=== PATIENT | female | born 1940 | race Caucasian/White ===

== ENCOUNTER → 2018-03-07 | Outpatient (CLI) | payer OTHER ==
[2018-03-07] VITALS (9 sets, daily range): BP systolic 135–187; BP diastolic 63–100
[~2018-03-07] MED LIST: ANTIVERT25 MG PO; ASPIR 8181 MG PO; BACTRIM DS TAB1 EACH PO; CALCIUM 500 +1 EAC5 PO; CALCIUM 600 +1 EAC1 PO; COUMADIN 1MG TAB1 M1 PO; ESTRADIOL 1 MG T1 M1 PO; FLOMAX0.4 MG PO; FLONASE 0.05%50 MCG NASAL; HEARTBURN TREAT15 MG PO; HYDROCHLOROTHIA25 M2 PO; LASIX 20 MG TAB20 MG PO; LIPITOR 20 MG T20 M1 PO; LOPRESSOR50 MG PO; MELATONIN3 MG PO; MIRALAX17 GM PO; OMEPRAZOLE 20 M20 M1 PO; PREDNISONE 10 M10 MG PO; PRENATAL PO; PRINIVIL20 MG PO; SINGULAIR 10 MG10 M1 PO; SYMBICORT160 MCG/4. INH; THERAGRAN-M PR1 EAC1 PO; TYLENOL325 MG PO; VENTOLIN HFA 1818 GM INH; VITAMIN A10000 UNI3 PO; VITAMIN D1000 UNI1 PO; ZOFRAN ODT4 MG DISSOLVE; ZYRTEC10 M5 PO
--- NOTE | 2018-03-07 17:03 | TEE ---
[place] [address] TRANSESOPHAGEAL ECHOCARDIOGRAM Name: JANUARY CHARLES Room: [facility]#: [id number] Admission: 03/07/18 Attend Phys: Ishaan Ashby Discharge: Date of : 42 Date of Service: 03/07/18 1702 Report #: [id number] THIS REPORT FOR: //name// ADDENDUM APPROVED REPORT Study performed: 03/07/2018 13:10:12 EXAM: Transesophageal Echocardiogram Patient Location: Out-Patient Status: routine BSA: 1.73 HR: 63 bpm BP: 154/70 mmHg Rhythm: NSR Other Information Study Quality: Good Indications Rule out vegetation on mitral valve Echo Enhancing Agent Indication: Rule out Shunt Agent(s) / Amount(s) Used: Agitated Saline 10 cc Procedure After obtaining informed consent, patient underwent transesophageal echo in the [employer]. Type of Sedation : Conscious Sedation Sedation was administered by Concepcion Moses RN. Sedation start time: 1309 Case end Time: 1320 Sedation was achieved intravenously with: Versed (4) Fentanyl (50) Transesophageal probe was inserted and advanced into esophagus without difficulty by Jung Oconnor MD, FACC. Echo enhancement indication: R/O Septal defect. Echo enhancement agent administered: Agitated Saline The RUTHY was performed without complications. Throughout the procedure, the blood pressure, pulse oximetry, cardiac rhythm, and rate were monitored. The patient tolerated the procedure without adverse effects. Recovery from conscious sedation was uneventful and vital signs were stable[place] [address] TRANSESOPHAGEAL ECHOCARDIOGRAM Name: JANUARY CHARLES Room: [facility]#: [id number] Admission: 03/07/18 Attend Phys: Ishaan Ashby Discharge: Date of : 42 Date of Service: 03/07/18 1702 Report #: [id number] The left ventricle is normal size. There is normal LV segmental wall motion. Mild concentric left ventricular hypertrophy. Left ventricular systolic function is normal. The left ventricular ejection fraction is within the normal range. No left ventricle thrombus noted on this study. LVEF is 60-65%. Right Ventricle The right ventricle is normal size. The right ventricular systolic function is normal. Atria No thrombus is visualized in the left atrium or appendage. Interatrial septum is intact without evidence of ASD or PFO. The right atrium size is normal. Aortic Valve The aortic valve is normal in structure. No aortic regurgitation is present. There is no aortic valvular vegetation. There is no aortic valvular stenosis. Mitral Valve The mitral valve is normal in structure. Mild to moderate mitral regurgitation. Moderate size mitral valve spherical , lesion adherent to the anterior leaflet.Dimension is .9cm in diameter.Its is not obstruction the mitrla valve orifice or causing significant mitral regurgitation No evidence of mitral valve stenosis. Tricuspid Valve The tricuspid valve is normal in structure. Trace tricuspid regurgitation. There is no tricuspid valve vegetations. Pulmonic Valve The pulmonary valve is normal in structure. There is no pulmonic valvular regurgitation. There is no pulmonic valve vegetations. Great Vessels The aortic root is normal in size. Pericardium There is no pericardial effusion. <Conclusion> Moderate size mitral valve spherical , lesion adherent to the anterior leaflet.Dimension is .9cm in diameter.Its is not obstructing the mitral valve orifice or causing significant mitral regurgitation, [place] [address] TRANSESOPHAGEAL ECHOCARDIOGRAM Name: JANUARY CHARLES CALISTA [id number] Admission: 03/07/18 Attend Phys: Ishaan Ashby Discharge: Date of : 42 Date of Service: 03/07/181701 Report #: [id number] differential diagnosis includes endocarditic lesion or myxoma Mild to moderate mitral regurgitation. LVEF is 60-65%. There is normal LV segmental wall motion. Interatrial septum is intact without evidence of ASD or PFO. <ELECTRONICALLY SIGNED> By: Jung Oconnor MD, [facility] 03/07/181701 01 01 Jung Oconnor MD, FACC /INF
--- NOTE | 2018-03-12 08:50 | CON ---
[address] [address] CONSULTATION Name: JANUARY CHARLES Room: [facility]#: [id number] Admission: 03/07/18 Attend Phys: Robin Vera MD Discharge: Date of : 42 Report #: [id number] THIS REPORT FOR: //name// CC: Robin Vera DATE OF SERVICE: 03/07/2018 PRIMARY CARE PHYSICIAN: Robin Vera MD. CHIEF COMPLAINT: Dizziness, abnormal echocardiogram. HISTORY OF PRESENT ILLNESS: The patient is a 77-year-old female with a history of TIAs and chronic dizziness with weakness and fatigue and persistently elevated white blood cell count. She had an outpatient echocardiogram in our office, which demonstrated a question of mitral valve abnormality, possibly a vegetation. She is presenting here for further evaluation with a transesophageal echocardiogram. Historically, the symptoms have been persistent for the last 6-12 months with associated fatigue. She denies prolonged chest pain or pressure. Her echocardiogram did not show any wall motion abnormalities. For her TIA workup, she did have carotid Doppler studies, which were unremarkable for carotid stenosis of significance. She has no documented history of heart disease. She has not had any recent surgeries. She has not had cellulitis. She has no history of anemia of chronic disease, kidney failure but does have obstructive lung disease. PAST MEDICAL HISTORY: Significant for chronic dizziness, hypertension, ataxia, COPD, tobacco abuse. HOME MEDICATIONS: Aspirin 81 mg daily, atorvastatin 20 mg daily, calcium, estradiol, hydrochlorothiazide 25 mg daily, lisinopril 40 mg daily, meclizine 12.5 mg. SOCIAL HISTORY: Tobacco smoker. FAMILY HISTORY: Noncontributory. REVIEW OF SYSTEMS: GASTROINTESTINAL: No nausea or vomiting. No fevers or chills. MUSCULOSKELETAL: No prolonged viral syndrome. [address] [address] CONSULTATION Name: ARACELIJANUARY CALISTA Room: [facility]#: [id number] Admission: 03/07/18 Attend Phys: Robin Vera MD Discharge: Date of : 42 Report #: [id number] SKIN: No rashes. MUSCULOSKELETAL: Denies any nailbed abnormalities, hemorrhages or discoloration. EARS, NOSE, THROAT AND MOUTH: No decreased hearing, bleeding from nose or dentures. HEMATOLOGIC: No history of anemia or bleeding disorders. ALLERGIES: Positive hay fever. PULMONARY: Positive dyspnea with exertion. RESPIRATORY: Positive cough, positive COPD. CARDIOVASCULAR: No chest pain. No palpitations. PHYSICAL EXAMINATION: GENERAL: No syncope. VITAL SIGNS: Blood pressure is 130s/60s. She is in a sinus rhythm. GENERAL: This is a thin elderly female. She is alert, no apparent distress. NECK: Supple. No jugular venous distention. Upstrokes are normal. There are no bruits. CARDIOVASCULAR: Regular. I could not hear a murmur. There is no rub or gallop. LUNGS: Clear to auscultation. ABDOMEN: Soft, nontender, nondistended. EXTREMITIES: No edema. OUTSIDE DATA: Reviewed her evaluation for 02/19/[address] Vera' office. IMPRESSION AND PLAN: 1. 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 She underwent a transesophageal echocardiogram today, which did demonstrate a 0.5 x 1 cm atrial-sided anterior mitral valve leaflet lesion likely related to a vegetation. Alternative diagnosis could also be a myxomatous abnormality. There is no intracardiac thrombus. I discussed with Dr. Vera and he will obtain blood cultures today and treat accordingly likely with Infectious Disease. 2. Elevated white blood cell count. 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 3. Preserved left ventricular function without any significant mitral valve insufficiency or stenosis. She does not meet criteria at this point in time for requirement for cardiothoracic surgery evaluation. 4. Tobacco use. Cessation is recommended. 5. Cerebrovascular accident. I would continue with baby aspirin, but consideration for adding Plavix also may be helpful. FOLLOWUP: We will arrange for followup with her in 3 months. <ELECTRONICALLY SIGNED> By: Jung Oconnor MD, FACC 03/12/18 0850 1620 [id number] Oconnor MD, FACC /nt
== END | disposition home or self-care (01) ==
LOC: M.CL 11:33
DX: I34.0 Nonrheumatic mitral (valve) insufficiency (principal); I34.8 Other nonrheumatic mitral valve disorders; I10 Essential (primary) hypertension; J44.9 Chronic obstructive pulmonary disease, unspecified; F17.210 Nicotine dependence, cigarettes, uncomplicated; Z79.899 Other long term (current) drug therapy; Z79.82 Long term (current) use of aspirin; Z86.73 Personal history of transient ischemic attack (TIA), and cerebral infarction without residual deficits

== ENCOUNTER 2018-08-07 14:02 | Inpatient (IN) | payer OTHER ==
[~2018-08-07] VITALS: Ht 165.1 cm; Wt 60.8 kg
--- NOTE | ~2018-08-07 | CON ---
[address] [address] CONSULTATION Name: JANUARY CHARLES Room: [address] IN M.R.#: [id number] Admission: 08/07/18 Attend Phys: Nohemi Mondragon MD Discharge: Date of : 42 Report #: [id number] THIS REPORT FOR: //name// CC: Gaudencio Mondragon DATE OF SERVICE: 08/08/2018 REASON FOR CONSULTATION: Anemia. HISTORY OF PRESENT ILLNESS: This is a 78-year-old female who has had long hospitalization of 71 days at [facility] prior to her transfer to [facility]. Since her transfer, she was found to be anemic with hemoglobin of 7. The patient subsequently was transferred to [facility] for further workup. She takes warfarin, but she denies any hematochezia or melena. She also denies nausea, vomiting or hematemesis. She had some dysphagia, which has resolved and she is able to tolerate regular meals. She claims that her last scopes were 3 years ago when she underwent upper and lower endoscopy. Her lower endoscopy was essentially unremarkable. PAST MEDICAL HISTORY: Significant for long history of hospitalization due to complication associated with heart surgery. She apparently has had bilateral pneumonia, renal failure, respiratory failure requiring ventilation, chronic kidney disease, dyslipidemia, hypertension, GERD and chronic anticoagulation therapy. ALLERGIES: Please refer to hospital MAR. MEDICATIONS: Please refer to hospital MAR. SOCIAL HISTORY: The patient currently lives in [facility]. Denies tobacco or alcohol use. She has had a complicated hospitalization prior to her transfer to [facility] and was in hospital for 2-1/2 months. PHYSICAL EXAMINATION: VITAL SIGNS: Reveals blood pressure of 151/67, pulse 75, respirations 16 and temperature 36.7 centigrade. LUNGS: Clear to auscultation bilaterally. CARDIOVASCULAR: Regular rate without any murmur. ABDOMEN: Soft, nontender and nondistended. NEUROLOGICAL: The patient is alert and oriented x 3. LABORATORY DATA: Reveal INR of 1.5. WBC is 14.4, hemoglobin 7.1, platelets 202 and MCV is 90. Sodium 136, potassium 3.7, BUN 31, creatinine 1.7 and glucose 91. Liver function tests within normal limits. Calcium is 7.5 with total protein of 5.9. Albumin is 2.1. [place] [address] CONSULTATION Name: LONG CHARLESBRENDEN Sands Room: [address] IN [facility]#: [id number] Admission: 08/07/18 Attend Phys: Nohemi Mondragon MD Discharge: Date of : 42 Report #: [id number] ASSESSMENT AND PLAN: The patient with long history of hospitalization due to complication associated with cardiac surgery. The patient also has chronic kidney disease and presents with anemia. She has normocytic anemia and B12, folate and iron have been checked and are within normal limits. This may be anemia of chronic deficiency, but we will go ahead and perform an upper endoscopy to rule out gastroduodenal ulcers as the patient had a long hospital course and Intensive Care Unit course, which may be associated with gastric ulcers. The patient also had some dysphagia symptoms, but she reports that no longer that is the case and she has been able to tolerate diet. We will make further recommendation after her upper endoscopy is complete. Meanwhile, we will continue to monitor hemoglobin and hematocrit as it seems to be stable since admission. By: 1331 2100Nikos Alonzo MD /sharan
[~2018-08-07 14:02] MED LIST changes: -BACTRIM DS TAB1 EACH PO; -CALCIUM 600 +1 EAC1 PO; -COUMADIN 1MG TAB1 M1 PO; -FLOMAX0.4 MG PO; -LASIX 20 MG TAB20 MG PO; -LOPRESSOR50 MG PO; -MELATONIN3 MG PO; -MIRALAX17 GM PO; -OMEPRAZOLE 20 M20 M1 PO; -PREDNISONE 10 M10 MG PO; -PRENATAL PO; -THERAGRAN-M PR1 EAC1 PO; -TYLENOL325 MG PO; -VITAMIN A10000 UNI3 PO; -VITAMIN D1000 UNI1 PO; -ZOFRAN ODT4 MG DISSOLVE
[2018-08-07] MEDS ORDERED: TYLENOL325 MG PO (14:33)
[2018-08-07] MEDS ORDERED: LASIX 20 MG TAB20 MG PO (14:33)
[2018-08-07] MEDS ORDERED: OMEPRAZOLE 20 M20 M1 PO (14:34)
[2018-08-07] MEDS ORDERED: SINGULAIR 10 MG10 M1 PO (14:34)
[2018-08-07] MEDS ORDERED: LOPRESSOR50 MG PO (14:34)
[2018-08-07] MEDS ORDERED: FLOMAX0.4 MG PO ×2 (14:35)
[2018-08-07] MEDS ORDERED: THERAGRAN-M PR1 EAC1 PO (14:35)
[2018-08-07] MEDS ORDERED: MELATONIN3 MG PO (14:36)
[2018-08-07 14:47] LABS: HEMATOCRIT 21.8 % (37.0-47.0); MCHC 32.3 g/dL (28.0-37.0); MCV 93.1 fL (80.0-100.0); MPV 7.6 fl. (7.2-11.1); NUCLEATED RBCS 0 /100WBC; PLATELET COUNT* 273 thou/uL (150-400); RBC 2.34 mil/uL (4.20-5.00); RDW-CV 19.6 % (10.5-14.5); WBC 17.2 thou/uL (4.0-11.0)
[2018-08-07 14:55] LABS: INR 1.5; PROTIME 15.4 Seconds (9.20-11.50)
[2018-08-07 15:04] LABS: ANION GAP 12 mmol/L (7-16); BUN 34 mg/dL (7-18); CALCIUM 7.9 mg/dL (8.5-10.1); CHLORIDE 100 mmol/L (98-107); CO2 20 mmol/L (21-32); GLUCOSE 192 mg/dL (70-99); POTASSIUM 4.8 mmol/L (3.5-5.1); SODIUM 132 mmol/L (136-145)
[2018-08-07 15:11] LABS: ALBUMIN 2.1 g/dL (3.4-5.0); ALKALINE PHOSPHATASE 75 U/L (46-116); SGOT 29 U/L (15-37); SGPT 27 U/L (30-65); TOTAL BILIRUBIN 0.2 mg/dL (<0.1-1.0); TOTAL PROTEIN 5.9 g/dL (6.4-8.2); TROPONIN-I LEVEL <0.06 ng/mL (<0.06)
[2018-08-07 15:17] LABS: ABSOLUTE LYMPHOCYTES 1.9 thou/uL (0.8-5.3); ABSOLUTE MONOCYTES 1.4 thou/uL (0.0-1.2); ABSOLUTE NEUTROPHILS 13.9 thou/uL (1.6-8.1); ANISOCYTOSIS 2+; PLATELET ESTIMATE ADEQUATE
[2018-08-07 15:18] LABS: MICROCYTES 1+; OVALOCYTES Occasional
--- NOTE | 2018-08-07 16:41 | EKG ---
[place] [address] ELECTROCARDIOGRAM REPORT Name: JANUARY CHARLES Room: [place] [address] ADM IN .R.#: [id number] Admission: 08/07/18 Attend Phys: Nohemi Mondragon MD Discharge: Date of : 42 Report #: [id number] THIS REPORT FOR: //name// [facility] ED Test Date: 2018-08-07 Test Time: 14:44:43 Pat Name: JANUARY ARACELI Department: Room: [facility] Gender: F School Administrator: Wicho PEREZ : 1940 Requested By: Jeromy Kinsey Order Number: [id number] MD: Jung Oconnor Measurements Intervals [place] Rate: 67 P: 52 IA: 164 QRS: 91 QRSD: 139 T: 33 QT: 484 QTc: 511 Interpretive Statements Sinus rhythm RBBB and LPFB No previous ECG available for comparison Electronically Signed On 08-07-2018 16:41:29 CDT by Jung Oconnor [email or web address] <ELECTRONICALLY SIGNED> By: Jung Oconnor MD, [facility] 08/07/18 1641 1444 1444 Jung Oconnor MD, [facility] /EPI
[2018-08-07 18:42] VITALS: BP 123/70
--- NOTE | 2018-08-07 18:45 | NUR ---
ER ADMIT TO RM SETTLED IN BED ORIENTED TO RM AND CALL LIGHT VS TAKEN AND STABLE HEART MONITOR PLACED NUNES LEG BATH URINE LEAKED, CHANGED LEG BAG TO DD BATH GIVEN TOLERATED FAIRLY WELL DAUGHTERS AT BEDSIDE # 1 UNIT OF BLD TRANSFUSING
[2018-08-07 20:49] LABS: % SATURATION 28 % (20-39); IRON 52 ug/dL (50-175)
[2018-08-07 21:00] VITALS: BP 141/59
[2018-08-07 22:01] LABS: HEMATOCRIT 24.4 % (37.0-47.0)
[2018-08-08] VITALS: BP 134/56
[2018-08-08] MEDS ORDERED: CALCIUM 600 +1 EAC1 PO (01:43)
[2018-08-08] MEDS ORDERED: MIRALAX17 GM PO (01:47)
[2018-08-08] MEDS ORDERED: PREDNISONE 10 M10 MG PO (01:48)
[2018-08-08] MEDS ORDERED: THERAGRAN-M PR1 EAC1 PO (01:51)
[2018-08-08] MEDS ORDERED: VITAMIN A10000 UNI3 PO (01:53)
[2018-08-08] MEDS ORDERED: COUMADIN 1MG TAB1 M1 PO (01:54)
[2018-08-08] MEDS ORDERED: ZOFRAN ODT4 MG DISSOLVE (01:56)
[2018-08-08 04:00] VITALS: BP 133/61
[2018-08-08 05:14] LABS: CALCIUM 7.5 mg/dL (8.5-10.1); CREATININE 1.7 mg/dL (0.6-1.3)
[2018-08-08 05:16] LABS: HEMATOCRIT 21.9 % (37.0-47.0); HEMOGLOBIN 7.1 gm/dL (12.0-15.0); MCHC 32.7 g/dL (28.0-37.0); MCV 91.7 fL (80.0-100.0); MPV 7.5 fl. (7.2-11.1); NUCLEATED RBCS 1 /100WBC; PLATELET COUNT* 202 thou/uL (150-400); RBC 2.38 mil/uL (4.20-5.00); RDW-CV 17.4 % (10.5-14.5); WBC 14.4 thou/uL (4.0-11.0)
[2018-08-08 05:37] LABS: POTASSIUM 3.7 mmol/L (3.5-5.1)
[2018-08-08 05:54] LABS: ABSOLUTE EOSINOPHILS 0.1 thou/uL (0.0-0.7); ABSOLUTE LYMPHOCYTES 2.9 thou/uL (0.8-5.3); ABSOLUTE NEUTROPHILS 10.4 thou/uL (1.6-8.1); MYELOCYTES 1 %; PLATELET ESTIMATE ADEQUATE
[2018-08-08 05:55] LABS: ANISOCYTOSIS 1+; HYPOCHROMASIA 1+; POIKILOCYTOSIS 1+
--- NOTE | 2018-08-08 07:15 | NUR ---
CHANGE OF SHIFT BEDSIDE REPORT GIVEN PATIENT SEEN AT BEDSIDE, IN BED ASLEEP ASSUMED PATIENT CARE
[2018-08-08 08:00] VITALS: BP 139/66
--- NOTE | 2018-08-08 10:32 | NUR ---
Nutrition: Pt admitted with low Hgb, anemia. Received pRBCs. BG ok, BUN 31, cr 1.7, alb 2.1, prealb 25.2. RX: statin, lasix, MVI. H/o anemia, CHF, COPD. Wt: 135#. Regular diet. Pressure ulcer on coccyx. Increased nutrient needs R.T wound healing AEB wound on coccyx. RD ordered [place] b.i.d. Continue MVI. Mild risk.
[2018-08-08 11:33] VITALS: BP 151/67
--- NOTE | 2018-08-08 13:58 | NUR ---
Wound care in with Pt, CM to assess later
--- NOTE | 2018-08-08 14:56 | NUR ---
WOUND CARE NOTE: CONSULT RECEIVED FOR WOUNDS. PATIENT PRESENTS WITH MULTIPLE AREAS OF ECCHYMOSIS THROUGHOUT HER BODY. PITTING LOWER EXTREMITY EDEMA NOTED 2-3+. SKIN TEAR TO LEFT CALDWELL, MOIST, PINK WOUND BED. CLEANSED WITH WOUND CLEANSER, PATTED DRY. APPLIED MULTIPLE LAYERS OF VASELINE GAUZE. COVERED WITH 4X4. SECURED WITH KERLIX THEN COLTON WRAP. RIGHT SIDE OF SACRUM: UNSTAGEABLE PRESSURE ULCER MEASURING 1.4X1X0.1. MOIST, YELLOW WOUND BED TO 100% OF WOUND BED. KB-WOUND INTACT. CLEANSED WITH WOUND CLEANSER, PATTED DRY. APPLIED AQUACEL AG AND SECURED WITH EXUDERM. RIGHT LOWER EXTREMITY: REMOVED TWO AREAS OF TEGADERM REVEALING ULCERATIONS. THE MOST PROXIMAL AREA IS HEALING WITH NEW EPITHELIUM COVERING APPROXIMATELY 80% OF WOUND BED. REST OF WOUND BED IS MOIST, RED AND HEALING. DISTAL 2 ULCERATIONS ARE MOIST WITH YELLOW SLOUGH COVERING ENTIRETY OF WOUND BED. AFTER CLEANSING BOTH AREAS. APPLIED MULITPLE LAYERS OF VASELINE GAUZE. COVERED WITH 4X4 AND SECURED WITH KERLIX THEN COLTON WRAP. PATIENT TOLERATED DRESSING CHANGES WELL. EDUCATED PATIENT AND SPOUSE ON FINDINGS AND DRESSING SELECTIONS. COMMUNICATED UNDERSTANDING. RECOMMEND FOLLOW UP IN WOUND CENTER ENCOURAGE GOOD NUTRTION/HYDRATION ELEVATE BLE HEELMEDIX BOOTS WHEN IN BED WAFFLE CUSHION WHEN IN CHAIR DAILY DRESSING CHANGES TO BLE KEEP OFF WOUND TO SACRUM
[2018-08-08 15:34] VITALS: BP 122/52
[2018-08-08 20:00] VITALS: BP 131/43
[2018-08-09 00:34] VITALS: BP 123/53
[2018-08-09 04:15] VITALS: BP 121/48
--- NOTE | 2018-08-09 05:18 | NUR ---
ASSUMED CARE OF PT AFTER REPORT AT 1930. PT A&OX4. VSS. PHYSICAL ASSESSMENT COMLPETED AND CHARTED. PT ON RA WITH 96% O2 SAT. PT TRACING SR BBB ON TELE. PT UP WITH 1-2 MAX ASSIST TO TOILET TONIGHT. PT WITH NUNES TO DEPENDENT DRAIN. DENIES ANY PAIN OR DISCOMFORT. INSTRUCTED NPO POST MIDNIGHT FOR EGD TODAY. COMMUNICATES UNDERSTANDING. PLACED WAFFLE BOOTS ON BOTH LOWER EXTREMITIES. TURNED PT EVERY 2 HOURS. CALL LIGHT WITHIN REACH. BED IN LOW POSITION. BED ALARM ON.
[2018-08-09 07:30] VITALS: BP 145/63
--- NOTE | 2018-08-09 07:30 | NUR ---
PT TAKEN FOR EGD
[2018-08-09 07:31] LABS: URINE BILIRUBIN NEGATIVE (Negative); URINE BLOOD 3+ (Negative); URINE CLARITY CLEAR; URINE COLOR YELLOW; URINE GLUCOSE-RANDOM NEGATIVE (Negative); URINE KETONES NEGATIVE (Negative); URINE NITRITE-REFLEX NEGATIVE (Negative); URINE PROTEIN NEGATIVE (Negative); URINE UROBILINOGEN 0.2 E.U./dl (0.2-1.0)
[2018-08-09 07:35] LABS: URINE LEUKOCYTES-REFLEX 2+ (Negative)
[2018-08-09 07:44] LABS: CASTS None Seen /LPF (None Seen); CRYSTALS None Seen /LPF (None Seen); MUCUS None Seen strn/LPF (None Seen); SQUAMOUS 0-3 Few /LPF (0-3); URINE RBC >20 Many /HPF (0-2)
--- NOTE | 2018-08-09 10:56 | NUR ---
MET WITH PT AND SPOUSE TO DISCUSS HOME SITUATION/DC PLANNING. PT WAS ADMITTED FROM SNF AT [facility]. SPOKE WITH [facility], THEY WILL ACCEPT BACK BUT WILL NEED TO OBTAIN INSURANCE AUTH FIRST. SHE WILL INITIATE THAT TODAY AND HOPES TO HEAR BACK. AWARE PT READY TO RETURN. PER SPOUSE, PT WAS AT [facility] FOR 2 MONTHS AND HAS BEEN AT [facility] FOR ABOUT 2 WEEKS FOR REHAB. USING WALKER TO GET AROUND. PRIOR TO HOSPITAL AND SNF STAY, PT STATES SHE WAS INDEPENDENT. ORDERS PENDING. AWAIT CALL BACK FROM [facility]. EXPLAINED SITUATION WITH AUTH TO PT AND SPOUSE
[2018-08-09] MEDS ORDERED: BACTRIM DS TAB1 EACH PO (11:00)
[2018-08-09] MEDS ORDERED: VITAMIN D1000 UNI1 PO (11:00)
[2018-08-09] MEDS ORDERED: PRENATAL PO (11:00)
[2018-08-09 12:16] VITALS: BP 128/59
[2018-08-09 16:19] VITALS: BP 116/56
--- NOTE | 2018-08-09 18:01 | NUR ---
pt without c/o today. up in chair for meals. activity encouraged. pt able to make needs known, call light in reach
[2018-08-09 20:00] VITALS: BP 113/58
[2018-08-10] VITALS (8 sets, daily range): BP systolic 117–140; BP diastolic 51–70
--- NOTE | 2018-08-10 04:25 | NUR ---
ASSUMED CARE OF PT AFTER REPORT AT 1930. PT A&OX4. VSS. PHYSICAL ASSESSMENT COMPLETED AND CHARTED. PT ON O2 AT 2L NC WITH 93% O2 SAT. PT TRACING SR BBB ON TELE. PT REPORTED UP STANDBY BUT REMAINS ON BED ALL NIGHT. PT WITH NUNES TO DEPENDENT DRAIN. DENIES ANY PAIN OR DISCOMFORT. PT TURNED EVERY 2 HOURS. PT RESTED WELL ON BED. HOURLY ROUNDING OBSERVED. HS REST & SAFETY GOALS ACHIEVED. CALL LIGHT WITHIN REACH. BED IN LOW POSITION. BED ALARM ON.
--- NOTE | 2018-08-10 16:16 | NUR ---
PT UP IN CHAIR FOR MEALS. TIRES QUICKLY. DENIES PAIN. NSR ON MONITOR. NUENS CATH DRAINING CLEAR YELLOW URINE. AT BS AND UPDATED ON PLAN OF CARE
[2018-08-11 04:11] VITALS: BP 137/69
[2018-08-11 04:54] LABS: INR 1.3; PROTIME 13.4 Seconds (9.20-11.50)
--- NOTE | 2018-08-11 05:49 | NUR ---
PT ALERT AND ORIENTED X4 ON ROOM AIR TRACING NSR BBB. HOURLY ROUNDING COMPLETED, CALL LIGHT WITHIN REACH.
--- NOTE | 2018-08-11 06:03 | NUR ---
THIS RN AGREES WITH CHARTING AND ASSESSMENT OF [facility].
[2018-08-11 08:34] VITALS: BP 127/55
[2018-08-11] MEDS ORDERED: BACTRIM DS TAB1 EACH PO (12:44)
--- NOTE | 2018-08-11 12:54 | NUR ---
SLIME spoke with Rehana from [facility], faxed updated PT note. Awaiting insurance auth.
[2018-08-11 16:00] VITALS: BP 128/66
--- NOTE | 2018-08-11 16:55 | NUR ---
PT UP IN CHAIR FOR MEALS. PT PARTICIPATED IN THERAPIES. UP IN ROOM WITH ASSIST AND WALKER. GOOD APPETITE. NUNES CATH DRAINING CLEAR YELLOW URINE. DENIES PAIN. AWAITING INSURNACE AUTH TO GO TO SNU. AT AND UPDATED ON PLAN OF CARE
[2018-08-11 20:19] VITALS: BP 104/54
[2018-08-12] VITALS: BP 108/42
[2018-08-12 03:52] LABS: HEMATOCRIT 22.8 % (37.0-47.0); HEMOGLOBIN 7.4 gm/dL (12.0-15.0); MCH 30.1 pg (26.0-34.0); MCHC 32.6 g/dL (28.0-37.0); MCV 92.3 fL (80.0-100.0); MPV 7.5 fl. (7.2-11.1); RBC 2.47 mil/uL (4.20-5.00); RDW-CV 18.1 % (10.5-14.5); WBC 11.4 thou/uL (4.0-11.0)
[2018-08-12 04:00] VITALS: BP 108/53
[2018-08-12 04:02] LABS: CALCIUM 6.9 mg/dL (8.5-10.1); CREATININE 1.8 mg/dL (0.6-1.3); POTASSIUM 3.6 mmol/L (3.5-5.1)
[2018-08-12 04:05] LABS: INR 1.3; PROTIME 13.8 Seconds (9.20-11.50)
--- NOTE | 2018-08-12 06:53 | NUR ---
PT IS ABLE TO COMMUNICATE HER NEEDS TO STAFF EFFECTIVELY. SHE HAS DENIED THE NEED FOR PAIN MEDICATION UP TO THIS TIME. NUNES IS PATENT. SHE IS MED-SURG, NON-TELE STATUS. CODE STATUS IS DNR. POSSIBLE DISCHARGE LATER TODAY.
[2018-08-12 08:05] VITALS: BP 124/63
--- NOTE | 2018-08-12 11:00 | NUR ---
REC'D REPORT FROM NOC RN, ASSUMED CARE OF PT APPROX 0730. PT OX4, QUIET, BUT ABLE TO COMMUNICATE NEEDS TO STAFF. MED SURG STATUS. O2 SATS >92% ON ROOM AIR. ASSESSMENT COMPLETE, DOCUMENTED, MEDS PER MAR. FAMILY VISITING IN ROOM EARLIER. HOURLY ROUNDING, POSITION CHANGE WITH ROUNDING. NUNES CATHETER TO DEPENDENT RADHA SERRANO, CONCENTRATED. MULTIPLE SKIN TEARS BUE COVERED WITH TEGADERM, C/D/I. COLTON WRAP OVER KERLIX WITH MEPILEX FOAM COVERING SKIN TEARS TO BLE, C/D/I. PT WILL TRANSFER TO [facility] LATER TODAY.
--- NOTE | 2018-08-12 12:06 | NUR ---
Pt discharging to [facility] skilled today. Faxed dc orders. at bedside and aware of disposition. Facility to pickling operator at 6pm. Chart copied. Nurse report number provided, [phone]
[2018-08-12 12:46] VITALS: BP 124/63
[2018-08-12 15:32] VITALS: BP 108/52
--- NOTE | 2018-08-12 18:30 | NUR ---
PT WITH COMPLETE DC ORDER LEFT UNIT VIA WC AND TRANSPORTER TO [facility] VIA [employer] [facility]. REPORT CALLED TO TYSON BURR, AT [facility]. PRIOR TO PATIENT LEAVING, REVIEWED DISCHARGE INSTRUCTIONS AND MEDICATION LIST WITH PT AND HER SPOUSE. ANSWERED QUESTIONS TO PT'S SATISFACTION. PT'S IV REMOVED PRIOR TO DC. WOUND CARE AND PHOTOS TAKEN FOR MEDICAL RECORD. PT IN POSSESSION OF ALL BELONGINGS. SPOUSE FOLLOWED PT OFF UNIT.
--- NOTE | 2018-08-12 18:40 | NUR ---
PHOTOS TAKEN PRIOR TO DC. ONE PHOTO OF PT'S R UE WOULD NOT DEVELOP. PT'S R UE WOUND HAD STERI STRIPS COVERED BY TRANSPARENT DRESSING. STERI STRIPS AND DRSG C/D/I. KB WOUND AREA WITHOUT ERYTHEMA.
== END 2018-08-12 18:30 | DRG 699 ==
LOC: M.ERS 14:02 → M.TBA-ER 15:15 → M.2W 15:15
PROVIDERS: Emergency Medicine Emergency Medical Services; ADMIT Family Medicine
PROC: 30233N1 Transfusion of Nonautologous Red Blood Cells into Peripheral Vein, Percutaneous Approach (ICD-10-PCS; principal; 2018-08-07)
PROC: 0DJ08ZZ Inspection of Upper Intestinal Tract, Via Natural or Artificial Opening Endoscopic (ICD-10-PCS; 2018-08-09)
DX: T83.511A Infection and inflammatory reaction due to indwelling urethral catheter, initial encounter (principal); N17.9 Acute kidney failure, unspecified; E87.1 Hypo-osmolality and hyponatremia; E44.0 Moderate protein-calorie malnutrition; N18.4 Chronic kidney disease, stage 4 (severe); I69.354 Hemiplegia and hemiparesis following cerebral infarction affecting left non-dominant side; I13.0 Hypertensive heart and chronic kidney disease with heart failure and stage 1 through stage 4 chronic kidney disease, or unspecified chronic kidney disease; R64 Cachexia; Z66 Do not resuscitate; N39.0 Urinary tract infection, site not specified; E78.5 Hyperlipidemia, unspecified; K21.9 Gastro-esophageal reflux disease without esophagitis; D63.8 Anemia in other chronic diseases classified elsewhere; R33.9 Retention of urine, unspecified; I48.0 Paroxysmal atrial fibrillation; K44.9 Diaphragmatic hernia without obstruction or gangrene; I50.9 Heart failure, unspecified; J44.9 Chronic obstructive pulmonary disease, unspecified; B96.89 Other specified bacterial agents as the cause of diseases classified elsewhere; Y84.6 Urinary catheterization as the cause of abnormal reaction of the patient, or of later complication, without mention of misadventure at the time of the procedure; Z87.01 Personal history of pneumonia (recurrent); Z68.22 Body mass index [BMI] 22.0-22.9, adult; Z95.2 Presence of prosthetic heart valve; Y92.89 Other specified places as the place of occurrence of the external cause; Z86.19 Personal history of other infectious and parasitic diseases; Z79.01 Long term (current) use of anticoagulants; Z79.51 Long term (current) use of inhaled steroids; Z79.899 Other long term (current) drug therapy; Z88.0 Allergy status to penicillin; Z82.49 Family history of ischemic heart disease and other diseases of the circulatory system

== ENCOUNTER → 2019-10-16 | Outpatient (CLI) | payer OTHER ==
[~2019-10-16] MED LIST changes: +BACTRIM DS TAB1 EACH PO; +CALCIUM 600 +1 EAC1 PO; +COUMADIN 1MG TAB1 M1 PO; +FLOMAX0.4 MG PO; +LASIX 20 MG TAB20 MG PO; +LOPRESSOR50 MG PO; +MELATONIN3 MG PO; +MIRALAX17 GM PO; +OMEPRAZOLE 20 M20 M1 PO; +PREDNISONE 10 M10 MG PO; +PRENATAL PO; +THERAGRAN-M PR1 EAC1 PO; +TYLENOL325 MG PO; +VITAMIN A10000 UNI3 PO; +VITAMIN D1000 UNI1 PO; +ZOFRAN ODT4 MG DISSOLVE
== END ==
LOC: M.ULTRA 10:00
DX: Z12.31 Encounter for screening mammogram for malignant neoplasm of breast (principal); N28.1 Cyst of kidney, acquired; N17.9 Acute kidney failure, unspecified

== ENCOUNTER 2019-12-23 10:27 | Emergency (ER) | payer OTHER ==
[~2019-12-23] VITALS: Ht 162.6 cm; Wt 75.8 kg
[2019-12-23 10:34] VITALS: BP 156/58
[2019-12-23 11:06] LABS: ABSOLUTE BASOPHILS 0.2 thou/uL (0.0-0.2); ABSOLUTE EOSINOPHILS 0.1 thou/uL (0.0-0.7); ABSOLUTE LYMPHOCYTES 2.7 thou/uL (0.8-5.3); ABSOLUTE MONOCYTES 0.9 thou/uL (0.0-1.2); ABSOLUTE NEUTROPHILS 12.6 thou/uL (1.6-8.1); BASOPHILS 0.9 %; EOSINOPHILS 0.5 %; HEMOGLOBIN 13.9 gm/dL (12.0-15.0); LYMPHOCYTES 16.5 %; MCH 30.7 pg (26.0-34.0); MCV 90.3 fL (80.0-100.0); MONOCYTES 5.6 %; MPV 10.1 fl. (7.2-11.1); NUCLEATED RBCS 0 /100WBC; POLYS 76.5 %; RBC 4.54 mil/uL (4.20-5.00); RDW-CV 14.6 % (10.5-14.5); WBC 16.5 thou/uL (4.0-11.0)
[2019-12-23] MEDS ORDERED: ASA81BEC PO (11:08)
[2019-12-23] MEDS ORDERED: HYDROCHLOROTH12.5 M2 PO (11:09)
[2019-12-23 11:15] LABS: APTT 27.4 Seconds (25.0-31.3); CALCIUM 8.3 mg/dL (8.5-10.1); CREATININE 2.1 mg/dL (0.6-1.3); POTASSIUM 3.6 mmol/L (3.5-5.1); PROTIME 10.7 Seconds (9.20-11.50)
[2019-12-23 11:30] LABS: ALBUMIN 3.5 g/dL (3.4-5.0); CK-MB MASS 1.3 ng/mL (<0.5-3.6); TOTAL BILIRUBIN 0.6 mg/dL (<0.1-1.0); TOTAL PROTEIN 7.1 g/dL (6.4-8.2)
[2019-12-23 11:54] LABS: MICROCYTES 1+; PLATELET ESTIMATE DECREASED
[2019-12-23 11:56] LABS: PLATELET COUNT* 47 thou/uL (150-400)
[2019-12-23 13:00] LABS: URINE BILIRUBIN NEGATIVE (Negative); URINE BLOOD NEGATIVE (Negative); URINE CLARITY CLEAR; URINE COLOR YELLOW; URINE GLUCOSE-RANDOM NEGATIVE (Negative); URINE KETONES NEGATIVE (Negative); URINE LEUKOCYTES-REFLEX 1+ (Negative); URINE PROTEIN NEGATIVE (Negative); URINE UROBILINOGEN 0.2 E.U./dl (0.2-1.0)
[2019-12-23 13:01] LABS: URINE NITRITE-REFLEX POSITIVE (Negative)
[2019-12-23 13:12] LABS: BACTERIA-REFLEX >30 Many /HPF (None Seen); CASTS None Seen /LPF (None Seen); CRYSTALS None Seen /LPF (None Seen); MUCUS None Seen strn/LPF (None Seen); SQUAMOUS 0-3 Few /LPF (0-3); URINE RBC 0-2 Rare /HPF (0-2); URINE WBC-REFLEX 0-5 Rare /HPF (0-5)
[2019-12-23 16:43] VITALS: BP 153/72
--- NOTE | 2019-12-23 16:47 | EKG ---
[place] [address] ELECTROCARDIOGRAM REPORT Name: JANUARY CHARLES Room: [facility]#: [id number] Admission: 12/23/19 Attend Phys: Discharge: Date of : 42 Date of Service: 12/23/19 1109 Report #: [id number] THIS REPORT FOR: //name// [facility] ED Test Date: 2019-12-23 Test Time: 11:09:40 Pat Name: JANUARY CHARLES Department: Room: [facility] Gender: Supervisor [employer]: : 1940 Requested By: Mohinder Ross Order Number: [id number] MD: Dony Thomson Measurements Intervals [place] Rate: 61 P: 53 MO: 186 QRS: 89 QRSD: 129 T: 70 QT: 460 QTc: 464 Interpretive Statements Sinus rhythm Right bundle branch block Nonspecific repol abnormality, lateral leads Baseline wander in lead(s) I,II,aVR,aVL,aVF,V1,V2,V3,V4,V5,V6 Compared to ECG 08/07/2018 14:44:43 Early repolarization now present Left posterior fascicular block no longer present Electronically Signed On 12-23-2019 16:46:27 CDT by Dony Thomson [email or web address] <ELECTRONICALLY SIGNED> By: Dony Thomson MD, [facility] 12/23/19 1646 1109 1109 Dony Thomson MD, [facility] /EPI
== END 2019-12-23 16:48 | disposition short-term general hospital (02) ==
LOC: M.ERS 10:27 → M.TBA-ER 12:10 → M.ERS 16:48
PROVIDERS: Family Medicine
DX: N39.0 Urinary tract infection, site not specified (principal); R41.82 Altered mental status, unspecified; D69.6 Thrombocytopenia, unspecified; I48.91 Unspecified atrial fibrillation; J44.9 Chronic obstructive pulmonary disease, unspecified; Z88.0 Allergy status to penicillin; Z87.01 Personal history of pneumonia (recurrent)

== ENCOUNTER 2020-02-19 10:55 | Emergency (ER) | payer OTHER ==
[~2020-02-19] VITALS: Ht 165.1 cm; Wt 77.1 kg
[~2020-02-19 10:55] MED LIST changes: +ASA81BEC PO; +HYDROCHLOROTH12.5 M2 PO
[2020-02-19] MEDS ORDERED: PREDNISONE50 MG PO (11:07)
[2020-02-19 12:03] VITALS: BP 90/36
== END 2020-02-19 12:04 | disposition home or self-care (01) ==
LOC: M.ERS 10:55
DX: S81.012A Laceration without foreign body, left knee, initial encounter (principal); S81.011A Laceration without foreign body, right knee, initial encounter; S51.812A Laceration without foreign body of left forearm, initial encounter; I48.91 Unspecified atrial fibrillation; J44.9 Chronic obstructive pulmonary disease, unspecified; F17.210 Nicotine dependence, cigarettes, uncomplicated; Z88.0 Allergy status to penicillin; W18.39XA Other fall on same level, initial encounter; Y93.89 Activity, other specified; Y92.89 Other specified places as the place of occurrence of the external cause; Y99.8 Other external cause status

== ENCOUNTER 2020-02-19 13:40 | Emergency (ER) | payer OTHER ==
[~2020-02-19] VITALS: Ht 165.1 cm; Wt 82.1 kg
[~2020-02-19 13:40] MED LIST changes: +PREDNISONE50 MG PO
[2020-02-19 14:26] LABS: HEMATOCRIT 29.2 % (37.0-47.0); HEMOGLOBIN 8.8 gm/dL (12.0-15.0); MCH 32.1 pg (26.0-34.0); MCHC 30.3 g/dL (28.0-37.0); MCV 106.1 fL (80.0-100.0); MPV 8.8 fl. (7.2-11.1); NUCLEATED RBCS 1 /100WBC; PLATELET COUNT* 250 thou/uL (150-400); RBC 2.75 mil/uL (4.20-5.00); RDW-CV 18.5 % (10.5-14.5); WBC 16.1 thou/uL (4.0-11.0)
[2020-02-19 14:35] LABS: APTT 31.3 Seconds (25.0-31.3); INR 1.1; PROTIME 11.4 Seconds (9.20-11.50)
[2020-02-19 14:47] LABS: CALCIUM 6.9 mg/dL (8.5-10.1); CREATININE 4.9 mg/dL (0.6-1.3)
[2020-02-19 14:50] LABS: BE -17.7 mmol/L (-2 to +3)
[2020-02-19 14:51] LABS: POTASSIUM 6.1 mmol/L (3.5-5.1)
[2020-02-19 14:55] LABS: PCO2 50.7 mmHg (35.0-45.0); pH 7.008 (7.340-7.450)
[2020-02-19 14:55] LABS: ALBUMIN 2.6 g/dL (3.4-5.0); CK-MB MASS 3.8 ng/mL (<0.5-3.6); MAGNESIUM 2.5 mg/dL (1.8-2.4); TOTAL BILIRUBIN 0.3 mg/dL (<0.1-1.0); TOTAL PROTEIN 5.4 g/dL (6.4-8.2)
[2020-02-19 14:56] LABS: PO2 < 23.5 mmHg (75.0-100.0)
[2020-02-19 15:03] LABS: ABSOLUTE LYMPHOCYTES 1.9 thou/uL (0.8-5.3); ABSOLUTE MONOCYTES 0.2 thou/uL (0.0-1.2); ANISOCYTOSIS 1+; MACROCYTES 1+; METAMYELOCYTES 2 %; MYELOCYTES 3 %; PLATELET ESTIMATE ADEQUATE; POIKILOCYTOSIS 2+; POLYCHROMASIA 1+
[2020-02-19 15:51] VITALS: BP 0/0
--- NOTE | 2020-02-20 10:55 | CON ---
[address] [address] CONSULTATION Name: JANUARY CHARLES Room: [facility]#: [id number] Admission: 02/19/20 Attend Phys: Discharge: 02/19/20 Date of : 42 Report #: [id number] THIS REPORT FOR: //name// cc: Yoli Gaines Maggie M. DO ~ THIS REPORT FOR: //name// CC: Mohinder Dutton DATE OF SERVICE: 02/19/2020 CARDIOLOGY CONSULTATION HISTORY OF PRESENT ILLNESS: The patient is a 79-year-old white female who I was asked to see in the Emergency Room after she was noted to have complete heart block. The history is obtained from the patient's spouse as well as some records from her previous re etcher. The patient has an extensive past medical history. She presented in the summer of 2017. Apparently, she was not doing well at that time. She underwent an extensive evaluation at [facility]. 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 She subsequently underwent coronary artery bypass surgery using a MIGUEL graft. She apparently underwent repair of the mitral valve. At the time of her surgery, a left saphenous vein graft was harvested and went to the right coronary artery. She had placement of intraaortic balloon pump. She underwent transesophageal echocardiogram. The mitral valve was replaced with a [place] [facility] tissue valve. Apparently after surgery, she had multiple complications in the hospital apparently over [address] [facility]. She had a maze procedure at the time of her surgery. She has a history of atrial fibrillation. Following surgery, she apparently had a stroke. She developed acute renal failure, requiring dialysis. 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 She developed a DVT. She developed pneumonia. She was noted to be anemic. She eventually was required plasmapheresis. She was eventually discharged home. However, she was just readmitted to [facility] a month ago for an entire month. She is being treated for her TTP. She was given shots once a day. She eventually had a PICC line placed. According to the , she just finished her shots recently. She ambulates with a cane. Recently, she has been confused, short of breath and lightheaded. She fell at home earlier today and was brought here to [place] by her family. She was noted to have a laceration of her knee and Steri-Strips were applied. She was discharged back home. However, when she got home, she felt lightheaded, went to the bathroom. According to family member, she slumped on the toilet and fell to the ground. Paramedics were called. She was brought here to [place] by ambulance. She was found to be in complete heart block. External pacing patches were applied. I was [place] [address] CONSULTATION Name: JANUARY CHARLES [facility] [id number] Admission: 02/19/20 Attend Phys: Discharge: 02/19/20 Date of : 42 Report #: [id number] evaluation and treatment. PAST MEDICAL HISTORY: She has had no other major surgical procedures. She does have a history of hypertension, hyperlipidemia. CURRENT MEDICATIONS: Include Lasix for edema, Flomax, Lipitor, metoprolol, omeprazole, aspirin, amlodipine, allopurinol. She is no longer on a seizure med. She is no longer on injections for TTP. She was taken off of warfarin recently. FAMILY HISTORY: Negative for heart disease. SOCIAL HISTORY: She is . She and her live in [place]. She smoked a pack of cigarettes a day. No alcohol abuse. REVIEW OF SYSTEMS: She had no history of asthma, liver disease, cancer, psychiatric illness, chronic skin condition. PHYSICAL EXAMINATION: GENERAL: Revealed an elderly female lying in a stretcher. She was unresponsive after receiving Versed. VITAL SIGNS: Her blood pressure is 110 systolic, pulse is 20. HEENT: She was anicteric. Conjunctivae are pink. Mucous membranes appear dry. CHEST: Clear to auscultation. CARDIOVASCULAR: Regular rate and rhythm, grade 2 systolic ejection murmur. ABDOMEN: Obese. EXTREMITIES: Had no edema. SKIN: Cool and dry. NEUROLOGIC: Nonfocal. ECG shows what appears to represent complete heart block with a ventricular escape rhythm. Her previous transesophageal echocardiogram was done here in 2017, apparently showed a vegetation on the mitral valve with significant mitral regurgitation. Ejection fraction 60%. She had chest x-ray done here at [place] in December that showed no acute abnormality, clear lung domingo. LABORATORY DATA: This morning sodium 132, potassium 6.1, BUN 75, creatinine 4.9, SGOT 135, magnesium 2.5, SGPT 306. Albumin 2.6. Troponin 0.049. BNP 11,318. Her white blood cell count 16.1, hematocrit 29.2, platelet count 250,000. IMPRESSION AND RECOMMENDATIONS: 1. Complete heart block. Recommend placement of a temporary pacemaker and discontinue metoprolol. 2. Renal failure. Recommend treating Hyperkalemia. 3. Renal failure. The patient might require dialysis. [address] [address] CONSULTATION Name: BIENVENIDOKIERA SCHAEFERLACY Sands [id number] Admission: 02/19/20 Attend Phys: Discharge: 02/19/20 Date of : 42 Report #: [id number] 4. Diabetes. 5. 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 6. Previous coronary artery bypass surgery. 7. Hyperlipidemia. The patient is on a statin drug. 8. Previous stroke. 9. Thrombotic thrombocytopenic purpura. The patient followed at [facility]. 10. History of deep venous thrombosis. 11. Elevated liver function studies. 12. Anemia. No recent bleeding. <ELECTRONICALLY SIGNED> By: Mendoza Wise MD, FACC 02/20/20 1055 1506 [id number] Wise MD, FACC /nt
--- NOTE | 2020-02-20 11:04 | EKG ---
[place] [address] ELECTROCARDIOGRAM REPORT Name: JANUARY CHARLES Room: [facility]#: [id number] Admission: 02/19/20 Attend Phys: Discharge: 02/19/20 Date of : 42 Date of Service: 02/19/20 1349 Report #: [id number] THIS REPORT FOR: //name// [facility] ED Test Date: 2020-02-19 Test Time: 13:49:36 Pat Name: JANUARY CHARLES Department: Room: Gender: Service Order Clerk: TATY : 1940 Requested By: Mohinder Ross Order Number: [id number] MD: Mendoza Wise Measurements Intervals Brant Rate: 26 P: [place]: QRS: 120 QRSD: 150 T: -31 QT: 596 QTc: 392 Interpretive Statements idioventricular rhythm Compared to ECG 12/23/2019 11:09:40 Sinus rhythm no longer present Electronically Signed On 02-20-2020 11:02:53 CDT by Mendoza Wise [email or web address] <ELECTRONICALLY SIGNED> By: Mendoza Wise MD, [facility] 02/20/20 1102 1349 1349 Mendoza Wise MD, [facility] /EPI
== END 2020-02-19 20:05 ==
LOC: M.ERS 13:40
PROVIDERS: Family Medicine
DX: I46.9 Cardiac arrest, cause unspecified (principal); I44.2 Atrioventricular block, complete; E87.5 Hyperkalemia; R79.89 Other specified abnormal findings of blood chemistry; R55 Syncope and collapse; I48.91 Unspecified atrial fibrillation; J44.9 Chronic obstructive pulmonary disease, unspecified; N17.9 Acute kidney failure, unspecified; Z88.0 Allergy status to penicillin